=== PATIENT | female | born 1950 | race Caucasian/White ===

== ENCOUNTER 2017-01-07 19:41 | Inpatient (IN) | payer MEDICARE ==
[~2017-01-07] VITALS: Ht 172.7 cm; Wt 84.8 kg
[~2017-01-07 19:41] MED LIST: AMLO10TA2 PO; BUSP10TA PO; Citalopram Hydrobromide PO; DOCU-131 PO; DONE10TA14 PO; ERGO500017 PO; FENO160T PO; LISI-170 PO; LOVA20TA2 PO; METF10002 PO; WARF2TAB7 PO; WARF3TAB7 PO
[2017-01-07] MEDS ORDERED: MAGNESIUM SULFATE PMX 2GM/50ML 50 ML IVPB ONE (20:00)
[2017-01-07] MEDS ORDERED: ALBUTEROL/IPRATROPIUM 2.5MG/0.5MG, 3 ML NPPB SCH (20:00)
[2017-01-07] MEDS ORDERED: SODIUM CHLORIDE FLUSH 10ML SYR IVF ONE (20:00)
[2017-01-07 20:14] LABS: HEMATOCRIT 35.3 % (34.6-47.8); HEMOGLOBIN 11.7 g/dL (11.7-16.4); WHITE BLOOD COUNT 4.9 x10^3/uL (3.4-10)
[2017-01-07] MEDS ORDERED: ALBUTEROL/IPRATROPIUM 2.5MG/0.5MG, 3 ML ONE (20:16)
[2017-01-07 20:25] LABS: BLOOD UREA NITROGEN 30 mg/dL (7-18)
[2017-01-07 20:30] LABS: IS PT STATUS REG ER OR PRE ER? YES
[2017-01-07] MEDS ORDERED: WARF5TAB PO (20:33)
[2017-01-07] MEDS ORDERED: ALBU1.25 NEB (20:33)
[2017-01-07] MEDS ORDERED: SODIUM CHLORIDE 0.9% 1,000 ML IV ONE (21:21)
[2017-01-07] MEDS ORDERED: DOCUSATE 100 MG CAPSULE PO PRN (22:30)
[2017-01-07] MEDS ORDERED: LACTATED RINGERS 1,000 ML IV SCH (22:30)
[2017-01-07] MEDS ORDERED: TRAZODONE 50MG TABLET PO PRN (22:30)
[2017-01-07] MEDS ORDERED: ONDANSETRON 2MG/ML, 2ML IVPush PRN (22:30)
[2017-01-07] MEDS ORDERED: SODIUM CHLORIDE 0.9% 1,000 ML IV SCH (22:30)
[2017-01-07] MEDS ORDERED: ACETAMINOPHEN 325 MG TABLET PO PRN (22:30)
[2017-01-07 22:47] LABS: IS PT STATUS REG ER OR PRE ER? YES
[2017-01-07] MEDS ORDERED: ALBUTEROL SULFATE 2.5 MG/3 ML NPPB PRN (23:30)
[2017-01-07 23:41] VITALS: BP 166/75
[2017-01-07] MEDS: ENOXAPARIN 40 MG/0.4 ML SQ SCH (23:51)
[2017-01-08 00:41] VITALS: BP 169/81
[2017-01-08 04:55] LABS: HEMATOCRIT 33.2 % (34.6-47.8); HEMOGLOBIN 11.4 g/dL (11.7-16.4); WHITE BLOOD COUNT 3.3 x10^3/uL (3.4-10)
[2017-01-08 05:02] LABS: BLOOD UREA NITROGEN 28 mg/dL (7-18)
[2017-01-08 05:08] LABS: IS PT STATUS REG ER OR PRE ER? NO
[2017-01-08] MEDS: ALBUTEROL/IPRATROPIUM 2.5MG/0.5MG, 3 ML NPPB SCH ×5 (06:25→22:00)
[2017-01-08 06:50] VITALS: BP 155/78
[2017-01-08] MEDS: LACTULOSE 10 GM/15 ML UDC PO SCH ×2 (09:00→20:50)
[2017-01-08] MEDS ORDERED: ALBUTEROL/IPRATROPIUM 2.5MG/0.5MG, 3 ML NPPB SCH (09:00)
[2017-01-08] MEDS: BUSPIRONE 10 MG TABLET PO SCH ×2 (10:12→20:50)
[2017-01-08] MEDS: metFORMIN 500 MG TABLET PO SCH ×2 (10:12→17:44)
[2017-01-08] MEDS: CITALOPRAM 20 MG TABLET PO SCH (10:13)
[2017-01-08] MEDS: FENOFIBRATE 145 MG TABLET PO SCH (10:13)
[2017-01-08 13:04] VITALS: BP 154/75
[2017-01-08] MEDS: WARFARIN 5 MG TABLET PO-COUM SCH (18:38)
[2017-01-08] MEDS: ENOXAPARIN 40 MG/0.4 ML SQ SCH (20:50)
[2017-01-08 21:00] VITALS: BP 161/94
[2017-01-08] MEDS: FLUCONAZOLE 200 MG TABLET PO SCH (22:56)
[2017-01-09 02:03] VITALS: BP 151/79
[2017-01-09] MEDS: ALBUTEROL/IPRATROPIUM 2.5MG/0.5MG, 3 ML NPPB SCH ×5 (06:00→21:51)
[2017-01-09 06:59] VITALS: BP 150/74
[2017-01-09 07:36] LABS: HEMATOCRIT 32.3 % (34.6-47.8); HEMOGLOBIN 10.9 g/dL (11.7-16.4); WHITE BLOOD COUNT 5.3 x10^3/uL (3.4-10)
[2017-01-09 07:49] LABS: BLOOD UREA NITROGEN 35 mg/dL (7-18)
[2017-01-09] MEDS: LACTULOSE 10 GM/15 ML UDC PO SCH ×2 (09:00→20:40)
[2017-01-09] MEDS: metFORMIN 500 MG TABLET PO SCH ×2 (10:09→17:59)
[2017-01-09] MEDS: FLUCONAZOLE 200 MG TABLET PO SCH (10:09)
[2017-01-09] MEDS: FENOFIBRATE 145 MG TABLET PO SCH (10:09)
[2017-01-09] MEDS: BUSPIRONE 10 MG TABLET PO SCH ×2 (10:09→20:40)
[2017-01-09] MEDS: CITALOPRAM 20 MG TABLET PO SCH (10:09)
[2017-01-09 14:00] VITALS: BP 146/76
[2017-01-09] MEDS: WARFARIN 5 MG TABLET PO-COUM SCH (18:00)
[2017-01-09 20:00] VITALS: BP 147/80
[2017-01-09] MEDS: ENOXAPARIN 40 MG/0.4 ML SQ SCH (20:40)
[2017-01-10 04:13] VITALS: BP 159/62
[2017-01-10] MEDS: metFORMIN 500 MG TABLET PO SCH (07:51)
[2017-01-10] MEDS: BUSPIRONE 10 MG TABLET PO SCH (07:52)
[2017-01-10] MEDS: LACTULOSE 10 GM/15 ML UDC PO SCH (07:52)
[2017-01-10] MEDS: FENOFIBRATE 145 MG TABLET PO SCH (07:52)
[2017-01-10] MEDS: CITALOPRAM 20 MG TABLET PO SCH (07:52)
[2017-01-10] MEDS: FLUCONAZOLE 200 MG TABLET PO SCH (07:52)
[2017-01-10 08:03] VITALS: BP 163/91
[2017-01-10] MEDS: ALBUTEROL/IPRATROPIUM 2.5MG/0.5MG, 3 ML NPPB SCH ×2 (08:05→12:00)
[2017-01-10] MEDS ORDERED: GUAI-103 PO (09:30)
[2017-01-10] MEDS ORDERED: ALBU90AE INH (09:30)
[2017-01-10] MEDS ORDERED: METH4TAB2 PO (09:30)
[2017-01-10] MEDS ORDERED: FLUC200T PO ×2 (09:30→09:34)
[2017-01-10 14:08] VITALS: BP 159/53
[2017-01-10] MEDS ORDERED: ALBUTEROL/IPRATROPIUM 2.5MG/0.5MG, 3 ML NPPB SCH (16:00)
== END 2017-01-10 15:45 | disposition home or self-care (01) | DRG 682 ==
LOC: ED 21:26 → EDIP 21:30 → 4EST 23:02
PROVIDERS: ADMIT Hospitalist; ATTEND Family Medicine
DX: N17.9 Acute kidney failure, unspecified (principal); J96.01 Acute respiratory failure with hypoxia; F03.90 Unspecified dementia, unspecified severity, without behavioral disturbance, psychotic disturbance, mood disturbance, and anxiety; B37.49 Other urogenital candidiasis; E11.9 Type 2 diabetes mellitus without complications; I10 Essential (primary) hypertension; J44.1 Chronic obstructive pulmonary disease with (acute) exacerbation; J45.41 Moderate persistent asthma with (acute) exacerbation; E86.0 Dehydration; D64.9 Anemia, unspecified; Z86.718 Personal history of other venous thrombosis and embolism; Z79.01 Long term (current) use of anticoagulants; Z87.891 Personal history of nicotine dependence; Z88.5 Allergy status to narcotic agent; Z88.8 Allergy status to other drugs, medicaments and biological substances
CPT/HCPCS: 36415; 71010; 80048; 81001; 82040; 83735; 84100; 84484; 85025; 85610; 87086; 87106; 93005; 93306; 94640; 96365; 96366; J1650; J7613; J7620; 92523-GN; J3475; J7030; J7120; J7512

== ENCOUNTER 2017-10-05 03:03 | Inpatient (IN) | payer OTHER ==
[~2017-10-05] VITALS: Ht 172.7 cm; Wt 90.9 kg
[~2017-10-05 03:03] MED LIST changes: +ALBU1.25 NEB; +ALBU90AE INH; +FLUC200T PO; +FURO20TA3 PO; +GUAI-103 PO; +METH4TAB2 PO; +POTA10CA PO; +PRED20TA PO; -WARF2TAB7 PO; +WARF2TAB99 PO; +WARF3TAB52 PO; -WARF3TAB7 PO; +WARF5TAB PO
[2017-10-05] MEDS ORDERED: ALBUTEROL/IPRATROPIUM 2.5MG/0.5MG, 3 ML ONE (03:08)
[2017-10-05] MEDS ORDERED: methylPREDNISolone SOD SUCC 125 MG/2 ML IVP ONE (03:30)
[2017-10-05] MEDS ORDERED: ALBUTEROL SULFATE 2.5 MG/3 ML NPPB ONE (03:30)
[2017-10-05 03:38] LABS: BASOPHILS # (AUTO) 0.04 x10^3/uL (0-0.1); BASOPHILS % (AUTO) 1 % (0-1); EOSINOPHILS # (AUTO) 0.25 x10^3/uL (0-0.4); EOSINOPHILS % (AUTO) 4 % (1-7); LYMPHOCYTES # (AUTO) 2.58 x10^3/uL (1-3.4); LYMPHOCYTES % (AUTO) 40 % (22-44); MD NO; MEAN CORPUSCULAR HEMOGLOBIN 29.2 pg (27.0-34.8); MEAN CORPUSCULAR HGB CONC 33.8 g/dL (32.4-35.8); MEAN CORPUSCULAR VOLUME 86.4 fL (80-100); MEAN PLATELET VOLUME 8.2 fL (7.4-10.4); MONOCYTES # (AUTO) 0.62 x10^3/uL (0.2-0.8); MONOCYTES % (AUTO) 10 % (2-9); NEUTROPHILS # (AUTO) 3.05 x10^3/uL (1.8-6.8); NEUTROPHILS % (AUTO) 47 % (42-75); PLATELET COUNT 162 x10^3/uL (130-400); RED BLOOD COUNT 4.79 x10^6/uL (3.82-5.3); RED CELL DISTRIBUTION WIDTH 13.8 % (9.6-15.2)
[2017-10-05 03:42] LABS: ALBUMIN 3.5 g/dL (3.4-5.0); ANION GAP 6 mmol/L (5-15); CHLORIDE 105 mmol/L (98-107)
[2017-10-05 03:46] LABS: TROPONIN I < 0.015 ng/mL (0.000-0.045)
[2017-10-05] MEDS ORDERED: methylPREDNISolone SOD SUCC 125 MG/2 ML ONE (03:52)
[2017-10-05] MEDS ORDERED: ONDANSETRON 2MG/ML, 2ML IVPush PRN ×2 (04:30→05:00)
[2017-10-05] MEDS ORDERED: SODIUM CHLORIDE 0.9% 1,000 ML IV SCH (04:35)
[2017-10-05] MEDS ORDERED: hydrALAzine 20 MG/ML, 1ML IVPush PRN (05:00)
[2017-10-05] MEDS ORDERED: GUAIFENESIN/DM 200-20MG, 10ML UDC PO PRN (05:00)
[2017-10-05] MEDS ORDERED: TEMPLATE NON-FORMULARY MED. (Albuterol Sulfate (Albuterol Sulfate**) 1 VIAL) NEB PRN (05:00)
[2017-10-05] MEDS ORDERED: TEMPLATE NON-FORMULARY MED. (Albuterol Sulfate (Proair Respiclick) 2 PUFFS) INH PRN (05:00)
[2017-10-05] MEDS ORDERED: ACETAMINOPHEN 325 MG TABLET PO PRN (05:00)
[2017-10-05] MEDS ORDERED: POLYETHYLENE GLYCOL 17 GM PACKET PO PRN (05:00)
[2017-10-05] MEDS ORDERED: ALBUTEROL SULFATE 2.5 MG/3 ML NPPB PRN (05:30)
[2017-10-05] MEDS ORDERED: ALBUTEROL SULFATE 2.5 MG/3 ML ONE (06:08)
[2017-10-05] MEDS: ALBUTEROL SULFATE 2.5 MG/3 ML NPPB SCH ×4 (06:12→19:09)
[2017-10-05 07:58] VITALS: BP 120/71
[2017-10-05] MEDS: methylPREDNISolone SOD SUCC 125 MG/2 ML IVPush SCH ×3 (08:53→20:46)
[2017-10-05] MEDS: ENOXAPARIN 40 MG/0.4 ML SQ SCH (08:53)
[2017-10-05 09:15] VITALS: BP 120/71
[2017-10-05 12:10] VITALS: BP 135/67
[2017-10-05 19:29] VITALS: BP 154/77
[2017-10-06 01:59] VITALS: BP 170/78
[2017-10-06 02:11] VITALS: BP 159/84
[2017-10-06] MEDS: methylPREDNISolone SOD SUCC 125 MG/2 ML IVPush SCH ×4 (02:12→22:47)
[2017-10-06 02:22] VITALS: BP 150/90
[2017-10-06 05:55] LABS: ALBUMIN 3.1 g/dL (3.4-5.0); ANION GAP 8 mmol/L (5-15); CALCIUM 8.8 mg/dL (8.5-10.1); CHLORIDE 108 mmol/L (98-107)
[2017-10-06 07:10] VITALS: BP 155/78
[2017-10-06] MEDS: ALBUTEROL SULFATE 2.5 MG/3 ML NPPB SCH ×4 (08:27→20:00)
[2017-10-06] MEDS: ENOXAPARIN 40 MG/0.4 ML SQ SCH (09:58)
[2017-10-06 12:15] VITALS: BP 165/93
[2017-10-06] MEDS ORDERED: WARF4TAB65 PO (16:46)
[2017-10-06 17:54] LABS: INTERNATIONAL NORMALIZED RATIO 2.54 (0.93-1.1); PROTHROMBIN TIME 25.7 Seconds (9.6-11.5)
[2017-10-06] MEDS ORDERED: WARFARIN 2 MG TABLET PO-COUM ONE (18:30)
[2017-10-06 21:46] VITALS: BP 161/76
[2017-10-07 01:43] VITALS: BP 158/76
[2017-10-07] MEDS: ALBUTEROL SULFATE 2.5 MG/3 ML NPPB SCH ×4 (02:01→15:10)
[2017-10-07] MEDS: methylPREDNISolone SOD SUCC 125 MG/2 ML IVPush SCH ×2 (05:33→12:49)
[2017-10-07] MEDS ORDERED: PRED20TA PO (06:51)
[2017-10-07 07:34] VITALS: BP 154/77
[2017-10-07] MEDS: ENOXAPARIN 40 MG/0.4 ML SQ SCH (09:36)
[2017-10-07 09:47] LABS: INTERNATIONAL NORMALIZED RATIO 2.65 (0.93-1.1); PROTHROMBIN TIME 26.8 Seconds (9.6-11.5)
[2017-10-07 13:14] VITALS: BP 144/68
[2017-10-07] MEDS ORDERED: WARFARIN 2 MG TABLET PO-COUM ONE (18:00)
== END 2017-10-07 16:45 | disposition home or self-care (01) | DRG 189 ==
LOC: ED 03:32 → EDIP 04:26 → SUATTDRO 04:35 → 5SO 07:50
PROVIDERS: ADMIT Hospitalist; ATTEND Hospitalist
DX: J96.21 Acute and chronic respiratory failure with hypoxia (principal); J44.1 Chronic obstructive pulmonary disease with (acute) exacerbation; N18.3 Chronic kidney disease, stage 3 (moderate); Z99.81 Dependence on supplemental oxygen; F32.9 Major depressive disorder, single episode, unspecified; E11.22 Type 2 diabetes mellitus with diabetic chronic kidney disease; E78.5 Hyperlipidemia, unspecified; F03.90 Unspecified dementia, unspecified severity, without behavioral disturbance, psychotic disturbance, mood disturbance, and anxiety; I12.9 Hypertensive chronic kidney disease with stage 1 through stage 4 chronic kidney disease, or unspecified chronic kidney disease; Z86.718 Personal history of other venous thrombosis and embolism; Z86.711 Personal history of pulmonary embolism
CPT/HCPCS: 0399T; 36415; 71045; 80048; 82040; 83735; 84100; 84484; 85025; 85610; 93005; 93306; 94640; 96374; J1650; J7613; J2930; J7030

== ENCOUNTER 2018-01-12 10:30 | Inpatient (IN) | payer OTHER ==
[~2018-01-12] VITALS: Ht 172.7 cm; Wt 95.0 kg
[~2018-01-12 10:30] MED LIST changes: -AMLO10TA2 PO; +AMLO10TA6 PO; +CEPH-376 PO; +FLUT1DIS5 IH; +LEVO750T26 PO; +VIT D PO; +WARF4TAB65 PO
[2018-01-12] MEDS ORDERED: ALBUTEROL/IPRATROPIUM 2.5MG/0.5MG, 3 ML NPPB ONE (11:00)
[2018-01-12] MEDS ORDERED: ALBUTEROL/IPRATROPIUM 2.5MG/0.5MG, 3 ML ONE ×2 (11:13→11:19)
[2018-01-12 12:04] LABS: BASOPHILS # (AUTO) 0.02 x10^3/uL (0-0.1); BASOPHILS % (AUTO) 0 % (0-1); EOSINOPHILS # (AUTO) 0.21 x10^3/uL (0-0.4); EOSINOPHILS % (AUTO) 4 % (1-7); LYMPHOCYTES # (AUTO) 2.11 x10^3/uL (1-3.4); LYMPHOCYTES % (AUTO) 42 % (22-44); MD NO; MEAN CORPUSCULAR HEMOGLOBIN 29.8 pg (27.0-34.8); MEAN CORPUSCULAR HGB CONC 33.7 g/dL (32.4-35.8); MEAN CORPUSCULAR VOLUME 88.4 fL (80-100); MEAN PLATELET VOLUME 8.7 fL (7.4-10.4); MONOCYTES # (AUTO) 0.41 x10^3/uL (0.2-0.8); MONOCYTES % (AUTO) 8 % (2-9); NEUTROPHILS % (AUTO) 46 % (42-75); PLATELET COUNT 102 x10^3/uL (130-400); RED CELL DISTRIBUTION WIDTH 13.3 % (9.6-15.2)
[2018-01-12 12:17] LABS: ALBUMIN 3.6 g/dL (3.4-5.0); ANION GAP 8 mmol/L (5-15); CALCIUM 8.9 mg/dL (8.5-10.1); CHLORIDE 103 mmol/L (98-107); CREATININE 1.19 mg/dL (0.55-1.02)
[2018-01-12] MEDS ORDERED: ALBU0.63 NEB (12:38)
[2018-01-12] MEDS ORDERED: WARF4TAB65 PO (12:38)
[2018-01-12] MEDS ORDERED: CHOL500045 PO (12:38)
[2018-01-12] MEDS ORDERED: ONDANSETRON 2MG/ML, 2ML IVPush PRN (13:00)
[2018-01-12] MEDS ORDERED: ENOXAPARIN 40 MG/0.4 ML SQ SCH (13:00)
[2018-01-12] MEDS ORDERED: POLYETHYLENE GLYCOL 17 GM PACKET PO PRN (13:00)
[2018-01-12] MEDS ORDERED: BISACODYL 10 MG SUPP PR PRN (13:00)
[2018-01-12] MEDS ORDERED: ENALAPRILAT 1.25 MG/ML, 2ML IVPush PRN (13:00)
[2018-01-12] MEDS ORDERED: DOCUSATE 100 MG CAPSULE PO PRN (13:00)
[2018-01-12] MEDS ORDERED: ACETAMINOPHEN 325 MG TABLET PO PRN (13:00)
[2018-01-12 13:30] VITALS: BP 138/66
[2018-01-12] MEDS ORDERED: PLEASE ENTER WEIGHT MC SCH (13:30)
[2018-01-12] MEDS ORDERED: WARFARIN BIOPROSTHETIC VALVE PROTOCOL 2-3 XX PRN (13:30)
[2018-01-12] MEDS ORDERED: ALBUTEROL SULFATE 2.5 MG/3 ML NEB PRN (13:30)
[2018-01-12 14:01] LABS: INTERNATIONAL NORMALIZED RATIO 2.22 (0.93-1.1); PROTHROMBIN TIME 22.7 Seconds (9.6-11.5)
[2018-01-12] MEDS: ALBUTEROL/IPRATROPIUM 2.5MG/0.5MG, 3 ML NPPB SCH ×3 (15:00→23:43)
[2018-01-12] MEDS ORDERED: WARFARIN 2 MG TABLET PO-COUM ONE (18:00)
[2018-01-12 19:02] VITALS: BP_SYST 172; BP_SYST 178; BP_DIAS 78; BP_DIAS 81
[2018-01-12] MEDS: SODIUM CHLORIDE FLUSH 10ML SYR IVF SCH (19:37)
[2018-01-13 00:46] VITALS: BP 104/63
[2018-01-13] MEDS: ALBUTEROL/IPRATROPIUM 2.5MG/0.5MG, 3 ML NPPB SCH ×5 (05:14→18:34)
[2018-01-13 05:27] LABS: INTERNATIONAL NORMALIZED RATIO 2.36 (0.93-1.1); PROTHROMBIN TIME 24.1 Seconds (9.6-11.5)
[2018-01-13 06:53] VITALS: BP 118/65
[2018-01-13] MEDS ORDERED: TEMPLATE NON-FORMULARY MED. (Warfarin Sodium** 4 MG) PO SCH (09:00)
[2018-01-13] MEDS: SODIUM CHLORIDE FLUSH 10ML SYR IVF SCH ×2 (10:03→20:37)
[2018-01-13] MEDS: CHOLECALCIFEROL 5,000u TAB PO SCH (10:03)
[2018-01-13] MEDS: GUAIFENESIN 200 MG TABLET PO SCH ×3 (12:29→20:37)
[2018-01-13 12:51] VITALS: BP 138/95
[2018-01-13] MEDS ORDERED: WARFARIN 2 MG TABLET PO-COUM ONE (18:00)
[2018-01-13 18:48] VITALS: BP 119/69
[2018-01-14] MEDS: ALBUTEROL/IPRATROPIUM 2.5MG/0.5MG, 3 ML NPPB SCH ×3 (01:12→10:15)
[2018-01-14 02:54] VITALS: BP 165/81
[2018-01-14 05:38] LABS: ALANINE AMINOTRANSFERASE 17 U/L (12-78); ALBUMIN 3.4 g/dL (3.4-5.0); ANION GAP 7 mmol/L (5-15); CALCIUM 8.9 mg/dL (8.5-10.1); CHLORIDE 105 mmol/L (98-107); CREATININE 1.58 mg/dL (0.55-1.02)
[2018-01-14 05:39] LABS: ALKALINE PHOSPHATASE 47 U/L (45-117); BILIRUBIN,TOTAL 0.4 mg/dL (0.2-1.0); TOTAL PROTEIN 6.4 g/dL (6.4-8.2)
[2018-01-14] MEDS: GUAIFENESIN 200 MG TABLET PO SCH ×2 (05:59→10:05)
[2018-01-14 07:54] VITALS: BP 133/72
[2018-01-14] MEDS ORDERED: PRED20TA PO (10:01)
[2018-01-14] MEDS ORDERED: TIOT18CA INH (10:01)
[2018-01-14] MEDS ORDERED: GUAI200T3 PO (10:01)
[2018-01-14] MEDS: CHOLECALCIFEROL 5,000u TAB PO SCH (10:05)
[2018-01-14] MEDS: SODIUM CHLORIDE FLUSH 10ML SYR IVF SCH (10:06)
== END 2018-01-14 14:06 | disposition home health service (06) | DRG 189 ==
LOC: ED 11:49 → EDIP 12:27 → OBSVTOIN 12:27 → INTOOBSV 12:27 → 3NE 13:20
PROVIDERS: ADMIT Internal Medicine; ATTEND Internal Medicine
DX: J96.01 Acute respiratory failure with hypoxia (principal); J44.1 Chronic obstructive pulmonary disease with (acute) exacerbation; D68.69 Other thrombophilia; N18.9 Chronic kidney disease, unspecified; E11.22 Type 2 diabetes mellitus with diabetic chronic kidney disease; F32.9 Major depressive disorder, single episode, unspecified; E78.5 Hyperlipidemia, unspecified; F03.90 Unspecified dementia, unspecified severity, without behavioral disturbance, psychotic disturbance, mood disturbance, and anxiety; I13.10 Hypertensive heart and chronic kidney disease without heart failure, with stage 1 through stage 4 chronic kidney disease, or unspecified chronic kidney disease; D69.6 Thrombocytopenia, unspecified; Z86.718 Personal history of other venous thrombosis and embolism; Z86.711 Personal history of pulmonary embolism; Z79.01 Long term (current) use of anticoagulants; Z87.891 Personal history of nicotine dependence; Z99.81 Dependence on supplemental oxygen; Z98.891 History of uterine scar from previous surgery; Z80.9 Family history of malignant neoplasm, unspecified
CPT/HCPCS: 36415; 71045; 80048; 80053; 82040; 83880; 85025; 85610; 94640; 99285; G0378; J7620; J7512

== ENCOUNTER 2018-02-12 01:16 | Inpatient (IN) | payer OTHER ==
[~2018-02-12] VITALS: Ht 172.7 cm; Wt 99.3 kg
[~2018-02-12 01:16] MED LIST changes: +ALBU0.63 NEB; +CHOL500045 PO; +GUAI200T3 PO; +TIOT18CA INH
[2018-02-12] MEDS ORDERED: ALPR0.25 PO (01:27)
[2018-02-12] MEDS ORDERED: methylPREDNISolone SOD SUCC 125 MG/2 ML IVP ONE (01:30)
[2018-02-12] MEDS ORDERED: methylPREDNISolone SOD SUCC 125 MG/2 ML ONE (01:30)
[2018-02-12] MEDS ORDERED: ALBUTEROL 0.5%, 20ML NPPB SCH (01:30)
[2018-02-12] MEDS ORDERED: AZITHROMYCIN 250 MG TABLET PO ONE (01:30)
[2018-02-12] MEDS ORDERED: ALBUTEROL/IPRATROPIUM 2.5MG/0.5MG, 3 ML ONE (01:32)
[2018-02-12] MEDS ORDERED: ALBUTEROL SULFATE 2.5 MG/3 ML ONE ×2 (01:33→02:32)
[2018-02-12 01:37] LABS: BASOPHILS # (AUTO) 0.03 x10^3/uL (0-0.1); BASOPHILS % (AUTO) 1 % (0-1); EOSINOPHILS % (AUTO) 4 % (1-7); LYMPHOCYTES # (AUTO) 2.01 x10^3/uL (1-3.4); LYMPHOCYTES % (AUTO) 39 % (22-44); MD NO; MEAN CORPUSCULAR HEMOGLOBIN 29.3 pg (27.0-34.8); MEAN CORPUSCULAR HGB CONC 33.6 g/dL (32.4-35.8); MEAN CORPUSCULAR VOLUME 87.2 fL (80-100); MEAN PLATELET VOLUME 8.6 fL (7.4-10.4); MONOCYTES # (AUTO) 0.59 x10^3/uL (0.2-0.8); MONOCYTES % (AUTO) 11 % (2-9); NEUTROPHILS # (AUTO) 2.38 x10^3/uL (1.8-6.8); NEUTROPHILS % (AUTO) 46 % (42-75); PLATELET COUNT 135 x10^3/uL (130-400); RED BLOOD COUNT 4.21 x10^6/uL (3.82-5.3)
[2018-02-12] MEDS ORDERED: AZITHROMYCIN 500 MG TABLET ONE (01:38)
[2018-02-12 01:42] LABS: INTERNATIONAL NORMALIZED RATIO 2.4 (0.93-1.1); PROTHROMBIN TIME 24.3 Seconds (9.6-11.5)
[2018-02-12 01:45] LABS: ALBUMIN 3.4 g/dL (3.4-5.0); ANION GAP 9 mmol/L (5-15); CALCIUM 9.2 mg/dL (8.5-10.1); CHLORIDE 103 mmol/L (98-107)
[2018-02-12 01:49] LABS: TROPONIN I 0.021 ng/mL (0.000-0.045)
[2018-02-12 04:04] VITALS: BP 161/80
[2018-02-12] MEDS ORDERED: ALBUTEROL SULFATE 2.5 MG/3 ML NEB PRN (05:00)
[2018-02-12] MEDS ORDERED: GUAIFENESIN/DM 200-20MG, 10ML UDC PO PRN (05:00)
[2018-02-12] MEDS ORDERED: hydrALAzine 20 MG/ML, 1ML IVPush PRN (05:00)
[2018-02-12] MEDS ORDERED: ACETAMINOPHEN 325 MG TABLET PO PRN (05:00)
[2018-02-12] MEDS ORDERED: POLYETHYLENE GLYCOL 17 GM PACKET PO PRN (05:00)
[2018-02-12] MEDS ORDERED: ONDANSETRON 2MG/ML, 2ML IVPush PRN (05:00)
[2018-02-12] MEDS ORDERED: ONDANSETRON ODT 4 MG PO PRN (05:00)
[2018-02-12] MEDS: SODIUM CHLORIDE 0.9% 1,000 ML IV SCH ×2 (05:16→21:45)
[2018-02-12] MEDS: ALBUTEROL/IPRATROPIUM 2.5MG/0.5MG, 3 ML NPPB SCH ×4 (05:28→19:33)
[2018-02-12] MEDS ORDERED: ALBUTEROL/IPRATROPIUM 2.5MG/0.5MG, 3 ML NPPB PRN (05:30)
[2018-02-12 07:07] VITALS: BP 144/83
[2018-02-12] MEDS ORDERED: IPRATROPIUM 0.5 MG/2.5 ML INHA HHN SCH (09:00)
[2018-02-12] MEDS: CHOLECALCIFEROL 5,000u TAB PO SCH (09:10)
[2018-02-12] MEDS: methylPREDNISolone SOD SUCC 125 MG/2 ML IVPush SCH ×2 (09:10→18:02)
[2018-02-12 14:28] VITALS: BP 150/70
[2018-02-12] MEDS: WARFARIN 2 MG TABLET PO-COUM SCH (18:03)
[2018-02-12 19:31] VITALS: BP_SYST 123; BP_SYST 150; BP_DIAS 74; BP_DIAS 85
[2018-02-13] MEDS: methylPREDNISolone SOD SUCC 125 MG/2 ML IVPush SCH (01:25)
[2018-02-13] MEDS: ALBUTEROL/IPRATROPIUM 2.5MG/0.5MG, 3 ML NPPB SCH ×5 (01:30→19:27)
[2018-02-13 02:13] VITALS: BP 147/83
[2018-02-13 02:13] LABS: CULTURE INDICATED? YES; MICROSCOPIC AUTO
[2018-02-13 06:59] VITALS: BP 155/83
[2018-02-13] MEDS: CHOLECALCIFEROL 5,000u TAB PO SCH (09:39)
[2018-02-13] MEDS: SULFAMETH./TRIMETHOPRIM DS 800MG/160MG TABLET PO SCH ×2 (09:40→19:58)
[2018-02-13 13:28] VITALS: BP 177/81
[2018-02-13] MEDS: WARFARIN 2 MG TABLET PO-COUM SCH (17:57)
[2018-02-13 18:34] VITALS: BP 158/69
[2018-02-14 00:33] VITALS: BP 145/64
[2018-02-14] MEDS: ALBUTEROL/IPRATROPIUM 2.5MG/0.5MG, 3 ML NPPB SCH ×5 (01:08→19:28)
[2018-02-14 06:45] VITALS: BP 154/90
[2018-02-14] MEDS: SULFAMETH./TRIMETHOPRIM DS 800MG/160MG TABLET PO SCH (09:02)
[2018-02-14] MEDS: CHOLECALCIFEROL 5,000u TAB PO SCH (09:02)
[2018-02-14 14:00] VITALS: BP 164/86
[2018-02-14 14:10] VITALS: BP 164/86
[2018-02-14] MEDS: WARFARIN 2 MG TABLET PO-COUM SCH (18:00)
[2018-02-14 18:38] LABS: INTERNATIONAL NORMALIZED RATIO 3.4 (0.93-1.1); PROTHROMBIN TIME 34.2 Seconds (9.6-11.5)
[2018-02-14] MEDS ORDERED: WARFARIN 2 MG TABLET PO-COUM ONE (19:00)
[2018-02-14 19:37] VITALS: BP 135/64
[2018-02-15] MEDS: ALBUTEROL/IPRATROPIUM 2.5MG/0.5MG, 3 ML NPPB SCH ×4 (01:43→14:05)
[2018-02-15 02:00] VITALS: BP 157/84
[2018-02-15 06:03] LABS: ALBUMIN 3.2 g/dL (3.4-5.0); ANION GAP 8 mmol/L (5-15); CALCIUM 8.4 mg/dL (8.5-10.1); CHLORIDE 105 mmol/L (98-107); CREATININE 1.54 mg/dL (0.55-1.02); INTERNATIONAL NORMALIZED RATIO 3.33 (0.93-1.1); PROTHROMBIN TIME 33.5 Seconds (9.6-11.5)
[2018-02-15 06:46] VITALS: BP 151/73
[2018-02-15] MEDS: CHOLECALCIFEROL 5,000u TAB PO SCH (08:22)
[2018-02-15] MEDS ORDERED: METH4TAB2 PO (09:12)
[2018-02-15 12:23] VITALS: BP 140/80
[2018-02-15] MEDS ORDERED: WARFARIN 1 MG TABLET PO-COUM ONE (18:00)
== END 2018-02-15 16:23 | disposition home or self-care (01) | DRG 189 ==
LOC: ED 02:43 → EDIP 02:44 → ED 02:46 → 3NE 03:52
PROVIDERS: ADMIT Hospitalist; ATTEND Hospitalist
DX: J96.21 Acute and chronic respiratory failure with hypoxia (principal); J44.1 Chronic obstructive pulmonary disease with (acute) exacerbation; N39.0 Urinary tract infection, site not specified; F05 Delirium due to known physiological condition; Z87.891 Personal history of nicotine dependence; I12.9 Hypertensive chronic kidney disease with stage 1 through stage 4 chronic kidney disease, or unspecified chronic kidney disease; Z79.01 Long term (current) use of anticoagulants; Z86.711 Personal history of pulmonary embolism; Z99.81 Dependence on supplemental oxygen; E11.22 Type 2 diabetes mellitus with diabetic chronic kidney disease; E78.5 Hyperlipidemia, unspecified; N18.3 Chronic kidney disease, stage 3 (moderate); Z86.718 Personal history of other venous thrombosis and embolism; F03.90 Unspecified dementia, unspecified severity, without behavioral disturbance, psychotic disturbance, mood disturbance, and anxiety; Z88.6 Allergy status to analgesic agent
CPT/HCPCS: 36415; 71045; 80048; 81001; 82040; 83735; 84100; 84484; 85025; 85610; 87086; 93005; 94640; 96374; 99285; G0378; J7620; 92523-GN; J2930; J7030; J7512